=== PATIENT | female | born 1995 | race African-American/Black ===

== ENCOUNTER 2022-11-24 09:26 | Emergency (ER) | payer OTHER ==
[~2022-11-24] VITALS: Ht 157.5 cm; Wt 84.8 kg
[2022-11-24 09:31] VITALS: BP 147/95
[2022-11-24] MEDS ORDERED: IBUP-1454 PO (11:17)
== END 2022-11-24 11:43 | disposition home or self-care (01) ==
LOC: ER 09:26
DX: S80.02XA Contusion of left knee, initial encounter (principal); Z88.6 Allergy status to analgesic agent; V89.2XXA Person injured in unspecified motor-vehicle accident, traffic, initial encounter; Y93.89 Activity, other specified; Y92.89 Other specified places as the place of occurrence of the external cause; Y99.8 Other external cause status
CPT/HCPCS: 73564